=== PATIENT | female | born 1960 | race African-American/Black ===

== ENCOUNTER 2017-09-01 13:54 | Emergency (ER) | payer MEDICARE, MEDICAID ==
[~2017-09-01] VITALS: Ht 170.2 cm; Wt 84.0 kg
[~2017-09-01 13:54] MED LIST: AMI2 PO; ANUHCC PR; ASPI-1159 PO; CLAR10 PO; COMBIVENT RESPIMAT INH; EZET1TAB6 PO; FURO-151 PO; Fluticasone Propionate BOTHNSTRLS; IBUP-779 PO; LATA2.5D6 OP; LEVVL SQ; LINA5TAB PO; LORA10TA7 PO; LOSA50TA3 PO; METF500T4 PO; MONT10TA21 PO; OMEP20CA4 PO; POTA20TA34 PO; PROIN3 INH; THE3 PO
[2017-09-01] MEDS ORDERED: MORPHINE SULFATE 4 MG/ML CPJ (NOT FOR IM USE) IV STA (18:20)
[2017-09-01] MEDS ORDERED: ONDANSETRON HCL 4MG/2ML VIAL IV STA (18:20)
[2017-09-01] MEDS ORDERED: ALBUTEROL (0.083%) 2.5MG/3ML NEB HHN STA (19:26)
[2017-09-01 19:43] LABS: BASOPHILS % 0.3 % (0.0-2.0); EOSINOPHILS % 0.6 % (0.0-5.0); HEMATOCRIT. 41.8 % (36.0-48.0); HEMOGLOBIN. 13.8 g/dL (12.0-16.0); LYMPHOCYTES % 26.7 % (20.0-50.0); MEAN CORPUSCULAR HEMOGLOBIN 27.8 pg (28.0-32.0); MEAN PLATELET VOLUME 10.2 fl (7.4-10.4); MONOCYTES % 10.4 % (2.0-8.0); PLATELET 232 x1000/uL (130-400); RED BLOOD CELL COUNT 4.98 mill/uL (4.2-5.4); RED CELL DISTRIBUTION WIDTH 13.4 % (11.6-14.6)
[2017-09-01 19:46] LABS: PROTHROMBIN TIME 10.3 sec (9.4-11.6)
[2017-09-01 20:02] LABS: CLARITY URINE CLEAR (CLEAR); COLOR URINE YELLOW (YELLOW); KETONES URINE TRACE (NEGATIVE); LEUKOCYTE ESTERASE URINE 1+ (NEGATIVE); NITRITE URINE NEGATIVE (NEGATIVE); OCCULT BLOOD URINE NEGATIVE (NEGATIVE); PH URINE 6.5 (4.5-8.0); PROTEIN URINE NEGATIVE (NEGATIVE); SPECIFIC GRAVITY URINE 1.018 (1.005-1.030)
[2017-09-01 20:17] LABS: *AMPHETAMINES SCREEN URINE NEGATIVE (NEGATIVE); *BARBITURATES SCREEN URINE NEGATIVE (NEGATIVE); *BENZODIAZEPINES SCREEN URINE NEGATIVE (NEGATIVE); *COCAINE SCREEN URINE NEGATIVE (NEGATIVE); CANNABINOID URINE SCREEN NEGATIVE (NEGATIVE); METHADONE URINE SCREEN NEGATIVE (NEGATIVE); OPIATES URINE SCREEN NEGATIVE (NEGATIVE); PHENCYCLIDINE URINE SCREEN NEGATIVE (NEGATIVE)
[2017-09-01 20:34] LABS: CARBON DIOXIDE 31 mEq/L (21-32); CHLORIDE 107 mEq/L (98-107); ETHANOL BLOOD < 10 mg/dL
[2017-09-01 20:40] LABS: TROPONIN I < 0.02 ng/mL (0.00-0.04)
[2017-09-01 23:30] VITALS: BP 168/81
== END 2017-09-02 00:04 | disposition home or self-care (01) ==
LOC: ER 17:10
DX: R25.1 Tremor, unspecified (principal); H53.149 Visual discomfort, unspecified; R42 Dizziness and giddiness; R11.0 Nausea; I11.0 Hypertensive heart disease with heart failure; J44.9 Chronic obstructive pulmonary disease, unspecified; E78.00 Pure hypercholesterolemia, unspecified; E11.9 Type 2 diabetes mellitus without complications; Z86.73 Personal history of transient ischemic attack (TIA), and cerebral infarction without residual deficits; Z91.012 Allergy to eggs; Z91.011 Allergy to milk products; Z79.82 Long term (current) use of aspirin; Z79.4 Long term (current) use of insulin
CPT/HCPCS: 36415; 70450; 71045; 80053; 80198; 80305; 81001; 83880; 84484; 85025; 85610; 93005; 94640; 99285; G0482; J7611; J2270; J2405

== ENCOUNTER 2018-08-22 15:37 | Inpatient (IN) | payer MEDICARE, MEDICAID ==
[~2018-08-22] VITALS: Ht 171.4 cm; Wt 87.7 kg
[~2018-08-22 15:37] MED LIST changes: +LATA2.5D4 OP; -LATA2.5D6 OP; +METF-414 PO; -METF500T4 PO
[2018-08-22] MEDS ORDERED: HYDROCODONE/ACETAMINOPHEN 5/325MG TABLET PO ONE (16:30)
[2018-08-22] MEDS ORDERED: ALBUTEROL (0.083%) 2.5MG/3ML NEB HHN STA (17:35)
[2018-08-22 17:46] LABS: BASOPHILS % 0.9 % (0.0-2.0); EOSINOPHILS % 0.7 % (0.0-5.0); HEMATOCRIT. 38.1 % (36.0-48.0); HEMOGLOBIN. 12.6 g/dL (12.0-16.0); LYMPHOCYTES % 15.8 % (20.0-50.0); MEAN CORPUSCULAR HEMOGLOBIN 28.6 pg (28.0-32.0); MEAN CORPUSCULAR VOLUME 86.1 fL (81.0-99.0); MEAN PLATELET VOLUME 10.8 fl (7.4-10.4); MONOCYTES % 9.6 % (2.0-8.0); PLATELET 184 x1000/uL (130-400); RED BLOOD CELL COUNT 4.43 mill/uL (4.2-5.4); RED CELL DISTRIBUTION WIDTH 14.5 % (11.6-14.6)
[2018-08-22 17:51] LABS: CHLORIDE 106 mEq/L (98-107)
[2018-08-22 17:52] LABS: PROTHROMBIN TIME 10.2 sec (9.1-11.1)
[2018-08-22] MEDS ORDERED: ASPIRIN 325MG EC TABLET PO ONE (18:00)
[2018-08-22] MEDS ORDERED: GUAIFENESIN 200MG/10ML SUGAR FREE UDC PO PRN (18:45)
[2018-08-22] MEDS ORDERED: DEXTROSE 50% WATER 50ML SYRINGE IV PRN (18:45)
[2018-08-22] MEDS ORDERED: MORPHINE SULFATE 10MG/5ML ORAL SOLN UDC PO PRN (18:45)
[2018-08-22] MEDS ORDERED: CLONIDINE 0.1MG TABLET PO PRN (18:45)
[2018-08-22] MEDS ORDERED: LORAZEPAM 0.5MG TABLET PO PRN (18:45)
[2018-08-22] MEDS ORDERED: DOCUSATE SODIUM 100MG CAPSULE PO PRN (18:45)
[2018-08-22] MEDS ORDERED: ACETAMINOPHEN 325MG TABLET PO PRN (18:45)
[2018-08-22] MEDS ORDERED: NA PHOS,M-B/NA PHOS,DI-BA ENEMA 118ML PR PRN (18:45)
[2018-08-22] MEDS ORDERED: ONDANSETRON HCL 4MG/2ML INJ IV PRN (18:45)
[2018-08-22] MEDS ORDERED: NITROGLYCERIN 0.4MG TABLET SL SL PRN (18:45)
[2018-08-22] MEDS ORDERED: ZOLPIDEM TARTRATE 5MG TABLET PO PRN (18:45)
[2018-08-22] MEDS ORDERED: MAGNESIUM/ALUMINUM HYDROXIDE/SIMETHICONE 30ML UDC PO PRN (18:45)
[2018-08-22 19:06] LABS: *BARBITURATES SCREEN URINE NEGATIVE (NEGATIVE); *BENZODIAZEPINES SCREEN URINE NEGATIVE (NEGATIVE); *COCAINE SCREEN URINE NEGATIVE (NEGATIVE); METHADONE URINE SCREEN NEGATIVE (NEGATIVE)
[2018-08-22 19:07] LABS: *AMPHETAMINES SCREEN URINE NEGATIVE (NEGATIVE); CANNABINOID URINE SCREEN NEGATIVE (NEGATIVE); OPIATES URINE SCREEN NEGATIVE (NEGATIVE); PHENCYCLIDINE URINE SCREEN NEGATIVE (NEGATIVE)
[2018-08-22 22:00] VITALS: BP 140/65
[2018-08-22] MEDS ORDERED: INSULIN GLARGINE UD 100 UNITS/ML SYR SUBCUT SCH (22:00)
[2018-08-22] MEDS: INSULIN LISPRO 100 UNITS/ML SUBCUT SCH (22:36)
[2018-08-22] MEDS: BLOOD SUGAR DIAGNOSTIC STRIP TEST SCH (22:36)
[2018-08-22] MEDS: INSULIN GLARGINE UD 100 UNITS/ML SYR SUBCUT SCH (22:53)
[2018-08-22] MEDS: TRAMADOL 50MG TABLET PO PRN (22:54)
[2018-08-23] VITALS: BP 126/75
[2018-08-23 01:01] LABS: CREATINE KINASE MB FRACTION 1.1 ng/mL (0.5-3.6)
[2018-08-23] MEDS ORDERED: vit c PO (02:44)
[2018-08-23] MEDS ORDERED: COR25 PO (02:44)
[2018-08-23] MEDS ORDERED: SACU1TAB PO (02:44)
[2018-08-23] MEDS ORDERED: FLUT1BLS IH (02:44)
[2018-08-23] MEDS ORDERED: ATOR20TA65 PO (02:44)
[2018-08-23 04:00] VITALS: BP 135/72
[2018-08-23] MEDS: IPRATROPIUM/ALBUTEROL 0.5-3(2.5)MG/3ML NEB INH PRN ×2 (04:21→11:45)
[2018-08-23] MEDS: BLOOD SUGAR DIAGNOSTIC STRIP TEST SCH ×4 (06:47→21:00)
[2018-08-23] MEDS: INSULIN LISPRO 100 UNITS/ML SUBCUT SCH ×4 (06:47→21:00)
[2018-08-23 08:00] VITALS: BP 139/79
[2018-08-23 08:12] LABS: CREATINE KINASE MB FRACTION < 1.0 ng/mL (0.5-3.6)
[2018-08-23 08:15] LABS: CREATINE KINASE 109 IU/L (26-192)
[2018-08-23] MEDS ORDERED: ASPIRIN 325MG EC TABLET PO SCH (09:00)
[2018-08-23] MEDS: FAMOTIDINE 20MG TABLET PO SCH ×2 (09:56→21:45)
[2018-08-23] MEDS: LOSARTAN POTASSIUM 50 MG TABLET PO SCH (09:56)
[2018-08-23] MEDS: ASPIRIN 81MG EC TABLET PO SCH (09:56)
[2018-08-23] MEDS: ENOXAPARIN 40MG/0.4ML SYR SUBCUT SCH (09:57)
[2018-08-23] MEDS: TRAMADOL 50MG TABLET PO PRN ×2 (10:03→16:03)
[2018-08-23 12:00] VITALS: BP 136/76
[2018-08-23 16:00] VITALS: BP 138/69
[2018-08-23 20:00] VITALS: BP 140/67
[2018-08-23] MEDS ORDERED: ATORVASTATIN CALCIUM 40MG TABLET PO SCH (21:00)
[2018-08-23] MEDS: ATORVASTATIN CALCIUM 40MG TABLET PO SCH (21:45)
[2018-08-23] MEDS: INSULIN GLARGINE UD 100 UNITS/ML SYR SUBCUT SCH (22:00)
[2018-08-24] VITALS: BP 140/83
[2018-08-24] MEDS: IPRATROPIUM/ALBUTEROL 0.5-3(2.5)MG/3ML NEB INH PRN ×2 (00:28→16:12)
[2018-08-24 04:00] VITALS: BP 140/71
[2018-08-24] MEDS: BLOOD SUGAR DIAGNOSTIC STRIP TEST SCH ×4 (05:59→21:01)
[2018-08-24] MEDS: INSULIN LISPRO 100 UNITS/ML SUBCUT SCH ×4 (05:59→21:00)
[2018-08-24 07:08] LABS: BASOPHILS % 0.5 % (0.0-2.0); EOSINOPHILS % 0.7 % (0.0-5.0); HEMATOCRIT. 39.2 % (36.0-48.0); HEMOGLOBIN. 12.9 g/dL (12.0-16.0); LYMPHOCYTES % 22.9 % (20.0-50.0); MEAN CORPUSCULAR HEMOGLOBIN 28.5 pg (28.0-32.0); MEAN CORPUSCULAR VOLUME 86.6 fL (81.0-99.0); MEAN PLATELET VOLUME 10.8 fl (7.4-10.4); MONOCYTES % 9.3 % (2.0-8.0); NEUTROPHILS % 66.6 % (40.0-76.0); PLATELET 182 x1000/uL (130-400); RED BLOOD CELL COUNT 4.52 mill/uL (4.2-5.4); RED CELL DISTRIBUTION WIDTH 14.5 % (11.6-14.6)
[2018-08-24 07:18] LABS: CHLORIDE 103 mEq/L (98-107)
[2018-08-24 07:26] LABS: LDL CHOLESTEROL 157 mg/dL (5-100)
[2018-08-24 07:27] LABS: CREATINE KINASE 117 IU/L (26-192); CREATINE KINASE MB FRACTION < 1.0 ng/mL (0.5-3.6); HDL CHOLESTEROL 47 mg/dL (40-59)
[2018-08-24 08:29] VITALS: BP 127/67
[2018-08-24] MEDS: FAMOTIDINE 20MG TABLET PO SCH ×2 (08:32→21:00)
[2018-08-24] MEDS: TRAMADOL 50MG TABLET PO PRN (08:32)
[2018-08-24] MEDS: LOSARTAN POTASSIUM 50 MG TABLET PO SCH (08:32)
[2018-08-24] MEDS: ASPIRIN 81MG EC TABLET PO SCH (08:32)
[2018-08-24] MEDS: ENOXAPARIN 40MG/0.4ML SYR SUBCUT SCH (08:33)
[2018-08-24] MEDS ORDERED: POTASSIUM CHLORIDE 20MEQ TABLET SR PO NR (11:45)
[2018-08-24 12:00] VITALS: BP 121/67
[2018-08-24 16:00] VITALS: BP 115/64
[2018-08-24 20:00] VITALS: BP 122/71
[2018-08-24] MEDS: ATORVASTATIN CALCIUM 40MG TABLET PO SCH (21:00)
[2018-08-24] MEDS: INSULIN GLARGINE UD 100 UNITS/ML SYR SUBCUT SCH (21:04)
[2018-08-25 00:20] VITALS: BP 125/77
[2018-08-25] MEDS: IPRATROPIUM/ALBUTEROL 0.5-3(2.5)MG/3ML NEB INH PRN (01:38)
[2018-08-25 04:46] VITALS: BP 135/74
[2018-08-25] MEDS: INSULIN LISPRO 100 UNITS/ML SUBCUT SCH ×2 (06:27→12:40)
[2018-08-25] MEDS: BLOOD SUGAR DIAGNOSTIC STRIP TEST SCH ×2 (06:28→12:10)
[2018-08-25 07:34] VITALS: BP 137/78
[2018-08-25 07:38] LABS: HEMATOCRIT. 37.8 % (36.0-48.0); HEMOGLOBIN. 12.2 g/dL (12.0-16.0); LYMPHOCYTES % 28.6 % (20.0-50.0); MEAN CORPUSCULAR HEMOGLOBIN 28.2 pg (28.0-32.0); MEAN CORPUSCULAR VOLUME 87.2 fL (81.0-99.0); MEAN PLATELET VOLUME 11.1 fl (7.4-10.4); MONOCYTES % 14.3 % (2.0-8.0); NEUTROPHILS % 57.1 % (40.0-76.0); PLATELET 168 x1000/uL (130-400); RED BLOOD CELL COUNT 4.33 mill/uL (4.2-5.4); RED CELL DISTRIBUTION WIDTH 14.3 % (11.6-14.6)
[2018-08-25] MEDS: ENOXAPARIN 40MG/0.4ML SYR SUBCUT SCH (09:00)
[2018-08-25] MEDS: LOSARTAN POTASSIUM 50 MG TABLET PO SCH (09:35)
[2018-08-25] MEDS: FAMOTIDINE 20MG TABLET PO SCH (09:35)
[2018-08-25] MEDS: ASPIRIN 81MG EC TABLET PO SCH (09:35)
[2018-08-25 11:40] VITALS: BP 130/81
[2018-08-25 11:51] VITALS: BP 130/81
== END 2018-08-25 15:59 | disposition home or self-care (01) | DRG 313 ==
LOC: ER 15:37 → 8WST 17:38 → EDBEDREQ 17:41 → EDBEDREQTM 17:41 → ENRESERV 19:59
PROVIDERS: ADMIT Internal Medicine; ATTEND Internal Medicine
DX: R07.89 Other chest pain (principal); E44.1 Mild protein-calorie malnutrition; I42.0 Dilated cardiomyopathy; E11.9 Type 2 diabetes mellitus without complications; E83.51 Hypocalcemia; I11.0 Hypertensive heart disease with heart failure; J44.9 Chronic obstructive pulmonary disease, unspecified; I50.9 Heart failure, unspecified; I25.5 Ischemic cardiomyopathy; E78.00 Pure hypercholesterolemia, unspecified; I25.10 Atherosclerotic heart disease of native coronary artery without angina pectoris; Z68.29 Body mass index [BMI] 29.0-29.9, adult; Z79.4 Long term (current) use of insulin; Z86.73 Personal history of transient ischemic attack (TIA), and cerebral infarction without residual deficits; Z95.810 Presence of automatic (implantable) cardiac defibrillator; Z72.0 Tobacco use; Z88.1 Allergy status to other antibiotic agents; Z91.012 Allergy to eggs; Z91.011 Allergy to milk products; I25.2 Old myocardial infarction; Z98.51 Tubal ligation status; Z79.899 Other long term (current) drug therapy; Z79.82 Long term (current) use of aspirin
CPT/HCPCS: 36415; 71045; 80048; 80061; 80305; 82550; 82553; 82962; 83036; 83735; 83880; 84443; 84484; 85379; 93005; 93306; 93970; 93971; 94640; 97161; 97165; 99285; J1650; J1815; J7611; J7620

== ENCOUNTER 2018-09-27 15:33 | Inpatient (IN) | payer MEDICARE, MEDICAID ==
[~2018-09-27] VITALS: Ht 171.4 cm; Wt 81.2 kg
[~2018-09-27 15:33] MED LIST changes: -AMI2 PO; -ANUHCC PR; +ATOR20TA65 PO; -CLAR10 PO; +COR25 PO; -EZET1TAB6 PO; +FLUT1BLS IH; -Fluticasone Propionate BOTHNSTRLS; -IBUP-779 PO; -LEVVL SQ; -LORA10TA7 PO; -LOSA50TA3 PO; -OMEP20CA4 PO; +SACU1TAB PO; +vit c PO
[2018-09-27] MEDS ORDERED: METHYLPREDNISOLONE SOD SUCC 125 MG/2 ML VIAL IV STA (16:09)
[2018-09-27] MEDS ORDERED: ALBUTEROL (0.083%) 2.5MG/3ML NEB HHN STA (16:09)
[2018-09-27] MEDS ORDERED: IPRATROPIUM BROMIDE (0.02%) 0.5MG/2.5ML NEB HHN STA (16:09)
[2018-09-27] MEDS ORDERED: ASPIRIN 325MG EC TABLET PO ONE (16:15)
[2018-09-27 16:48] LABS: BASOPHILS % 0.5 % (0.0-2.0); EOSINOPHILS % 0.5 % (0.0-5.0); HEMATOCRIT. 39.9 % (36.0-48.0); HEMOGLOBIN. 13.1 g/dL (12.0-16.0); LYMPHOCYTES % 25.4 % (20.0-50.0); MEAN CORPUSCULAR HEMOGLOBIN 28.3 pg (28.0-32.0); MEAN PLATELET VOLUME 9.5 fl (7.4-10.4); MONOCYTES % 9.8 % (2.0-8.0); NEUTROPHILS % 63.8 % (40.0-76.0); PLATELET 243 x1000/uL (130-400); RED BLOOD CELL COUNT 4.64 mill/uL (4.2-5.4); RED CELL DISTRIBUTION WIDTH 14.9 % (11.6-14.6)
[2018-09-27 16:49] LABS: CHLORIDE 103 mEq/L (98-107)
[2018-09-27] MEDS: CETIRIZINE 10MG TABLET PO SCH (17:28)
[2018-09-27] MEDS ORDERED: DOCUSATE SODIUM 100MG CAPSULE PO PRN (22:00)
[2018-09-27] MEDS ORDERED: MAGNESIUM/ALUMINUM HYDROXIDE/SIMETHICONE 30ML UDC PO PRN (22:00)
[2018-09-27] MEDS ORDERED: GUAIFENESIN 200MG/10ML SUGAR FREE UDC PO PRN (22:00)
[2018-09-27] MEDS ORDERED: ONDANSETRON HCL 4MG/2ML INJ IV PRN (22:00)
[2018-09-27] MEDS ORDERED: CEFTRIAXONE 1 G PREMIX 50 ML IV SCH ×2 (22:00→23:00)
[2018-09-27] MEDS ORDERED: ACETAMINOPHEN 325MG TABLET PO PRN (22:00)
[2018-09-27] MEDS ORDERED: HYDROCODONE/ACETAMINOPHEN 5/325MG TABLET PO PRN (22:00)
[2018-09-27] MEDS ORDERED: LORAZEPAM 2MG/ML CPJ IV PRN (22:00)
[2018-09-27 22:30] VITALS: BP 148/78
[2018-09-28] VITALS: BP 123/81
[2018-09-28] MEDS: THEOPHYLLINE ANHYDROUS 80 MG/15 ML 120ML PO SCH ×5 (00:21→22:04)
[2018-09-28 01:25] LABS: CREATINE KINASE MB FRACTION 2.3 ng/mL (0.5-3.6)
[2018-09-28] MEDS ORDERED: CHOL100046 PO (02:16)
[2018-09-28] MEDS ORDERED: AMIO100T4 MT (02:16)
[2018-09-28] MEDS ORDERED: PROP10DR5 EACHEYE (02:20)
[2018-09-28] MEDS ORDERED: TAP5 PO (02:20)
[2018-09-28] MEDS ORDERED: PRED10DR EACHEYE (02:20)
[2018-09-28] MEDS ORDERED: DEXTROSE 50% WATER 50ML SYRINGE IV PRN (02:30)
[2018-09-28 04:00] VITALS: BP 111/60
[2018-09-28] MEDS: INSULIN LISPRO 100 UNITS/ML SUBCUT SCH ×4 (06:48→22:02)
[2018-09-28] MEDS: BLOOD SUGAR DIAGNOSTIC STRIP TEST SCH ×4 (06:48→21:00)
[2018-09-28 07:22] LABS: BASOPHILS % 0.1 % (0.0-2.0); HEMATOCRIT. 37.4 % (36.0-48.0); HEMOGLOBIN. 12.3 g/dL (12.0-16.0); LYMPHOCYTES % 14.4 % (20.0-50.0); MEAN CORPUSCULAR HEMOGLOBIN 28.4 pg (28.0-32.0); MEAN CORPUSCULAR VOLUME 86.4 fL (81.0-99.0); MEAN PLATELET VOLUME 9.6 fl (7.4-10.4); MONOCYTES % 2.1 % (2.0-8.0); NEUTROPHILS % 83.4 % (40.0-76.0); PLATELET 219 x1000/uL (130-400); RED BLOOD CELL COUNT 4.33 mill/uL (4.2-5.4); RED CELL DISTRIBUTION WIDTH 14.9 % (11.6-14.6)
[2018-09-28 07:25] LABS: CHLORIDE 108 mEq/L (98-107)
[2018-09-28 07:36] LABS: CREATINE KINASE 192 IU/L (26-192)
[2018-09-28 07:43] LABS: CREATINE KINASE MB FRACTION 1.8 ng/mL (0.5-3.6)
[2018-09-28 08:00] VITALS: BP 91/55
[2018-09-28] MEDS ORDERED: THEOPHYLLINE ANHYDROUS 80 MG/15 ML 120ML PO SCH (09:00)
[2018-09-28] MEDS: FUROSEMIDE 40MG/4ML VIAL IV SCH ×2 (09:00→17:53)
[2018-09-28] MEDS: CARVEDILOL 25MG TABLET PO SCH ×2 (09:00)
[2018-09-28] MEDS: METHIMAZOLE 5MG TABLET PO SCH (09:43)
[2018-09-28] MEDS: POTASSIUM CHLORIDE 20MEQ TABLET SR PO SCH (09:43)
[2018-09-28] MEDS ORDERED: OMEPRAZOLE 20MG CAPSULE EXTENDED RELEASE PO NR (11:15)
[2018-09-28 12:00] VITALS: BP 119/52
[2018-09-28] MEDS: PREDNISOLONE ACETATE 1% OPHTH DROPS 1ML EACHEYE SCH ×3 (13:00→17:53)
[2018-09-28] MEDS: IPRATROPIUM/ALBUTEROL 0.5-3(2.5)MG/3ML NEB INH PRN ×3 (13:34→21:16)
[2018-09-28 16:00] VITALS: BP 124/58
[2018-09-28] MEDS ORDERED: MONTELUKAST SODIUM 10MG TABLET PO SCH (17:00)
[2018-09-28] MEDS ORDERED: CARVEDILOL 25MG TABLET PO SCH (17:00)
[2018-09-28] MEDS: MONTELUKAST SODIUM 10MG TABLET PO SCH (17:53)
[2018-09-28 20:00] VITALS: BP 116/59
[2018-09-28] MEDS: CEFTRIAXONE 1 G PREMIX 50 ML IV SCH (22:00)
[2018-09-28] MEDS: GUAIFENESIN 600MG ER TABLET PO SCH (22:03)
[2018-09-28] MEDS: ENOXAPARIN 40MG/0.4ML SYR SUBCUT SCH ×2 (22:03)
[2018-09-28] MEDS: CARVEDILOL 6.25 MG TABLET PO SCH (22:03)
[2018-09-28] MEDS: ATORVASTATIN CALCIUM 20MG TABLET PO SCH (22:03)
[2018-09-28] MEDS: LATANOPROST 0.005% OPHTH DROPS 2.5ML BOTHEYE SCH (22:05)
[2018-09-28] MEDS: FLUTICASONE PROPIONATE 50MCG/SPRAY BOTTLE BOTHNSTRLS SCH (22:05)
[2018-09-29] VITALS: BP 121/54
[2018-09-29] MEDS: IPRATROPIUM/ALBUTEROL 0.5-3(2.5)MG/3ML NEB INH PRN ×5 (00:36→21:25)
[2018-09-29 04:00] VITALS: BP 130/6
[2018-09-29] MEDS: THEOPHYLLINE ANHYDROUS 80 MG/15 ML 120ML PO SCH ×4 (04:40→22:19)
[2018-09-29] MEDS: BLOOD SUGAR DIAGNOSTIC STRIP TEST SCH ×4 (05:48→21:36)
[2018-09-29] MEDS: OMEPRAZOLE 20MG CAPSULE EXTENDED RELEASE PO SCH (05:49)
[2018-09-29] MEDS: INSULIN LISPRO 100 UNITS/ML SUBCUT SCH ×4 (05:52→21:00)
[2018-09-29 08:00] VITALS: BP 113/49
[2018-09-29 09:00] LABS: BASOPHILS % 0.4 % (0.0-2.0); EOSINOPHILS % 0.1 % (0.0-5.0); HEMATOCRIT. 37.5 % (36.0-48.0); HEMOGLOBIN. 12.1 g/dL (12.0-16.0); MEAN CORPUSCULAR HEMOGLOBIN 28.1 pg (28.0-32.0); MEAN CORPUSCULAR VOLUME 87.3 fL (81.0-99.0); MEAN PLATELET VOLUME 9.7 fl (7.4-10.4); MONOCYTES % 6.9 % (2.0-8.0); NEUTROPHILS % 75.6 % (40.0-76.0); PLATELET 211 x1000/uL (130-400); RED BLOOD CELL COUNT 4.29 mill/uL (4.2-5.4)
[2018-09-29] MEDS: FUROSEMIDE 40MG/4ML VIAL IV SCH ×2 (09:38→18:44)
[2018-09-29] MEDS: CARVEDILOL 6.25 MG TABLET PO SCH ×2 (09:38→20:46)
[2018-09-29] MEDS: GUAIFENESIN 600MG ER TABLET PO SCH ×2 (09:38→20:46)
[2018-09-29] MEDS: POTASSIUM CHLORIDE 20MEQ TABLET SR PO SCH (09:38)
[2018-09-29] MEDS: METHIMAZOLE 5MG TABLET PO SCH (09:38)
[2018-09-29] MEDS: CETIRIZINE 10MG TABLET PO SCH (09:38)
[2018-09-29] MEDS: FLUTICASONE PROPIONATE 50MCG/SPRAY BOTTLE BOTHNSTRLS SCH ×2 (09:38→20:45)
[2018-09-29] MEDS: PREDNISOLONE ACETATE 1% OPHTH DROPS 1ML EACHEYE SCH ×3 (09:39→18:44)
[2018-09-29 12:00] VITALS: BP 151/76
[2018-09-29] MEDS ORDERED: METOLAZONE 2.5MG TABLET PO NR (12:30)
[2018-09-29] MEDS: LISINOPRIL 2.5MG TABLET PO SCH (14:01)
[2018-09-29 16:00] VITALS: BP 137/57
[2018-09-29] MEDS: MONTELUKAST SODIUM 10MG TABLET PO SCH (18:44)
[2018-09-29 20:00] VITALS: BP 118/78
[2018-09-29] MEDS: LATANOPROST 0.005% OPHTH DROPS 2.5ML BOTHEYE SCH (20:45)
[2018-09-29] MEDS: ATORVASTATIN CALCIUM 20MG TABLET PO SCH (20:46)
[2018-09-29] MEDS: ENOXAPARIN 40MG/0.4ML SYR SUBCUT SCH (22:18)
[2018-09-29] MEDS: CEFTRIAXONE 1 G PREMIX 50 ML IV SCH (22:19)
[2018-09-30] VITALS (7 sets, daily range): BP systolic 96–119; BP diastolic 52–78
[2018-09-30] MEDS: IPRATROPIUM/ALBUTEROL 0.5-3(2.5)MG/3ML NEB INH PRN ×5 (00:40→16:28)
[2018-09-30] MEDS: THEOPHYLLINE ANHYDROUS 80 MG/15 ML 120ML PO SCH ×3 (04:30→16:54)
[2018-09-30] MEDS: OMEPRAZOLE 20MG CAPSULE EXTENDED RELEASE PO SCH (07:10)
[2018-09-30] MEDS: BLOOD SUGAR DIAGNOSTIC STRIP TEST SCH ×3 (07:10→17:50)
[2018-09-30] MEDS: FUROSEMIDE 40MG/4ML VIAL IV SCH (07:15)
[2018-09-30] MEDS: INSULIN LISPRO 100 UNITS/ML SUBCUT SCH ×3 (07:25→17:40)
[2018-09-30 07:30] LABS: BASOPHILS % 0.6 % (0.0-2.0); EOSINOPHILS % 0.7 % (0.0-5.0); HEMATOCRIT. 41.7 % (36.0-48.0); HEMOGLOBIN. 13.6 g/dL (12.0-16.0); LYMPHOCYTES % 34.5 % (20.0-50.0); MEAN CORPUSCULAR HEMOGLOBIN 28.3 pg (28.0-32.0); MEAN CORPUSCULAR VOLUME 86.9 fL (81.0-99.0); MEAN PLATELET VOLUME 9.8 fl (7.4-10.4); MONOCYTES % 12.1 % (2.0-8.0); NEUTROPHILS % 52.1 % (40.0-76.0); PLATELET 218 x1000/uL (130-400); RED CELL DISTRIBUTION WIDTH 14.8 % (11.6-14.6)
[2018-09-30] MEDS: CETIRIZINE 10MG TABLET PO SCH (09:18)
[2018-09-30] MEDS: METHIMAZOLE 5MG TABLET PO SCH (09:18)
[2018-09-30] MEDS: POTASSIUM CHLORIDE 20MEQ TABLET SR PO SCH (09:18)
[2018-09-30] MEDS: CARVEDILOL 6.25 MG TABLET PO SCH (09:19)
[2018-09-30] MEDS: LISINOPRIL 2.5MG TABLET PO SCH (09:20)
[2018-09-30] MEDS: GUAIFENESIN 600MG ER TABLET PO SCH (09:20)
[2018-09-30] MEDS: PREDNISOLONE ACETATE 1% OPHTH DROPS 1ML EACHEYE SCH ×3 (09:21→17:54)
[2018-09-30] MEDS: FLUTICASONE PROPIONATE 50MCG/SPRAY BOTTLE BOTHNSTRLS SCH (09:21)
[2018-09-30] MEDS ORDERED: POTASSIUM CHLORIDE 20MEQ TABLET SR PO SCH (17:00)
[2018-09-30] MEDS: MONTELUKAST SODIUM 10MG TABLET PO SCH (17:54)
== END 2018-09-30 19:55 | disposition home or self-care (01) | DRG 291 ==
LOC: ER 15:33 → 8WST 17:30 → ENRESERV 20:29
PROVIDERS: ADMIT Hospitalist; ATTEND Hospitalist
DX: I13.0 Hypertensive heart and chronic kidney disease with heart failure and stage 1 through stage 4 chronic kidney disease, or unspecified chronic kidney disease (principal); I50.23 Acute on chronic systolic (congestive) heart failure; J96.00 Acute respiratory failure, unspecified whether with hypoxia or hypercapnia; N17.9 Acute kidney failure, unspecified; J44.1 Chronic obstructive pulmonary disease with (acute) exacerbation; I42.0 Dilated cardiomyopathy; I27.20 Pulmonary hypertension, unspecified; E11.9 Type 2 diabetes mellitus without complications; I50.82 Biventricular heart failure; N18.9 Chronic kidney disease, unspecified; J32.9 Chronic sinusitis, unspecified; E11.22 Type 2 diabetes mellitus with diabetic chronic kidney disease; E87.6 Hypokalemia; H40.9 Unspecified glaucoma; I25.10 Atherosclerotic heart disease of native coronary artery without angina pectoris; I25.2 Old myocardial infarction; Z79.899 Other long term (current) drug therapy; Z80.1 Family history of malignant neoplasm of trachea, bronchus and lung; Z80.3 Family history of malignant neoplasm of breast; Z86.73 Personal history of transient ischemic attack (TIA), and cerebral infarction without residual deficits; Z87.891 Personal history of nicotine dependence; Z90.710 Acquired absence of both cervix and uterus; Z95.810 Presence of automatic (implantable) cardiac defibrillator; Z99.81 Dependence on supplemental oxygen; Z91.81 History of falling; Z79.82 Long term (current) use of aspirin; Z88.8 Allergy status to other drugs, medicaments and biological substances; Z88.1 Allergy status to other antibiotic agents; Z91.012 Allergy to eggs; Z98.51 Tubal ligation status
CPT/HCPCS: 36415; 71045; 80048; 82550; 82553; 82962; 83880; 84484; 85379; 87804; 93005; 93306; 93970; 94640; 96374; 99285; C1893; J0696; J1650; J1815; J1940; J2930; J7040; J7611; J7620

== ENCOUNTER 2019-04-27 10:27 | Emergency (ER) | payer MEDICARE, MEDICAID ==
[~2019-04-27] VITALS: Ht 160 cm; Wt 78.1 kg
[~2019-04-27 10:27] MED LIST changes: +AMIO100T4 MT; -ASPI-1159 PO; +ASPI-1393 PO; +ATOR20TA MT; -ATOR20TA65 PO; +BLOO-1113 HHN; +CHOL100046 PO; -COMBIVENT RESPIMAT INH; +COR25 MT; -COR25 PO; -FLUT1BLS IH; -FURO-151 PO; +FURO40TA5 MT; -LATA2.5D4 OP; +LINA5TAB MT; +OMEP20CA5 MT; +PEG15DRO5 EACHEYE; +TAP5 PO; -vit c PO
[2019-04-27 10:54] LABS: BASOPHILS % 1.1 % (0.0-2.0); HEMATOCRIT. 42.3 % (36.0-48.0); HEMOGLOBIN. 13.9 g/dL (12.0-16.0); MEAN CORPUSCULAR VOLUME 85.4 fL (81.0-99.0); MEAN PLATELET VOLUME 9.8 fl (7.4-10.4); MONOCYTES % 9.4 % (2.0-8.0); NEUTROPHILS % 60.5 % (40.0-76.0); PLATELET 210 x1000/uL (130-400); RED BLOOD CELL COUNT 4.95 mill/uL (4.2-5.4); RED CELL DISTRIBUTION WIDTH 14.3 % (11.6-14.6)
[2019-04-27 10:58] LABS: CHLORIDE 105 mEq/L (98-107)
[2019-04-27 11:00] LABS: PROTHROMBIN TIME 10.6 sec (9.6-11.0)
[2019-04-27 11:05] LABS: ETHANOL BLOOD < 10 mg/dL
[2019-04-27 11:09] LABS: LDL CHOLESTEROL 131 mg/dL (5-100)
[2019-04-27 11:13] LABS: CREATINE KINASE 157 IU/L (26-192)
[2019-04-27 11:14] LABS: T4 FREE 0.88 ng/dL (0.76-1.46)
[2019-04-27] MEDS ORDERED: KCL 10MEQ/50ML PREMIX 50 ML IV ONE (11:45)
[2019-04-27] MEDS ORDERED: POTASSIUM CHLORIDE 20MEQ TABLET SR PO ONE (11:45)
[2019-04-27] MEDS ORDERED: MAGNESIUM/ALUMINUM HYDROXIDE/SIMETHICONE 30ML UDC PO PRN (14:45)
[2019-04-27] MEDS ORDERED: GUAIFENESIN 200MG/10ML SUGAR FREE UDC PO PRN (14:45)
[2019-04-27] MEDS ORDERED: ONDANSETRON HCL 4MG/2ML INJ IV PRN (14:45)
[2019-04-27] MEDS ORDERED: ACETAMINOPHEN 325MG TABLET PO PRN (14:45)
[2019-04-27] MEDS ORDERED: HYDROCODONE/ACETAMINOPHEN 5/325MG TABLET PO PRN (14:45)
[2019-04-27] MEDS ORDERED: DOCUSATE SODIUM 100MG CAPSULE PO PRN (14:45)
[2019-04-27] MEDS ORDERED: CLONIDINE 0.1MG TABLET PO PRN (14:45)
[2019-04-27] MEDS ORDERED: IPRATROPIUM/ALBUTEROL 0.5-3(2.5)MG/3ML NEB NEB PRN (14:45)
[2019-04-27 15:22] VITALS: BP 115/79
== END 2019-04-27 15:25 | disposition home or self-care (01) ==
LOC: ER 10:47 → EDBEDREQ 12:22 → EDBEDREQTM 12:22 → ENRESERV 14:24 → EDRESERV 14:24 → CANRESERV 14:24 → SUPCPDRO 14:37 → CANBEDREQ 15:06 → ER 15:25
DX: R55 Syncope and collapse (principal); I27.20 Pulmonary hypertension, unspecified; E11.9 Type 2 diabetes mellitus without complications; E87.6 Hypokalemia; E03.9 Hypothyroidism, unspecified; I10 Essential (primary) hypertension; I42.9 Cardiomyopathy, unspecified; E78.00 Pure hypercholesterolemia, unspecified; J45.990 Exercise induced bronchospasm; Z95.810 Presence of automatic (implantable) cardiac defibrillator; Z86.73 Personal history of transient ischemic attack (TIA), and cerebral infarction without residual deficits; Z79.84 Long term (current) use of oral hypoglycemic drugs; Z88.3 Allergy status to other anti-infective agents; Z91.012 Allergy to eggs; Z91.018 Allergy to other foods; Z91.011 Allergy to milk products; Z79.82 Long term (current) use of aspirin
CPT/HCPCS: 36415; 70450; 71045; 80053; 80198; 80320; 82550; 82962; 83690; 83721; 83735; 83880; 84439; 84443; 84481; 84484; 85025; 85610; 93005; 96365; 99291; J3480; G0480

== ENCOUNTER 2019-11-22 11:16 | Inpatient (IN) | payer MEDICARE, MEDICAID ==
[~2019-11-22] VITALS: Ht 170.2 cm; Wt 81.2 kg
[~2019-11-22 11:16] MED LIST changes: -ASPI-1393 PO; +ASPI-1497 PO; +FLUT1BLS INH; +IPRA4AER INH; +LATANOPROST EACHEYE; -LINA5TAB MT; +OMEP20CA14 MT; -OMEP20CA5 MT
[2019-11-22] MEDS ORDERED: ONDANSETRON HCL 4MG/2ML INJ IV STA (12:17)
[2019-11-22] MEDS ORDERED: MORPHINE SULFATE 4 MG/ML CPJ (NOT FOR IM USE) IV STA (12:17)
[2019-11-22] MEDS ORDERED: SODIUM CHLORIDE 0.9% 1,000 ML IV ONE (12:17)
[2019-11-22 12:58] LABS: BASOPHILS % 1.4 % (0.0-2.0); EOSINOPHILS % 0.8 % (0.0-5.0); HEMATOCRIT. 36.8 % (36.0-48.0); HEMOGLOBIN. 12.1 g/dL (12.0-16.0); LYMPHOCYTES % 21.1 % (20.0-50.0); MEAN CORPUSCULAR HEMOGLOBIN 26.8 pg (28.0-32.0); MEAN CORPUSCULAR VOLUME 81.7 fL (81.0-99.0); MEAN PLATELET VOLUME 8.9 fl (7.4-10.4); MONOCYTES % 13.2 % (2.0-8.0); NEUTROPHILS % 63.5 % (40.0-76.0); PLATELET 277 x1000/uL (130-400); RED CELL DISTRIBUTION WIDTH 16.9 % (11.6-14.6)
[2019-11-22 13:01] LABS: CHLORIDE 105 mEq/L (98-107)
[2019-11-22 13:15] LABS: INR 1.1; PARTIAL THROMBOPLASTIN TIME 30.5 sec (23.4-31.0); PROTHROMBIN TIME 12.1 sec (9.6-11.0)
[2019-11-22] MEDS ORDERED: POTASSIUM CHLORIDE 20MEQ TABLET SR PO ONE (15:45)
[2019-11-22] MEDS ORDERED: ASPIRIN 81MG TABLET PO ONE (15:45)
[2019-11-22] MEDS ORDERED: FUROSEMIDE 40MG/4ML VIAL IV ONE (15:45)
[2019-11-22] MEDS ORDERED: NITROGLYCERIN 0.4MG TABLET SL SL PRN (15:45)
[2019-11-22] MEDS ORDERED: ACETAMINOPHEN 325MG TABLET PO PRN (17:30)
[2019-11-22] MEDS ORDERED: DIPHENHYDRAMINE 50MG/ML VIAL IV PRN (17:30)
[2019-11-22] MEDS ORDERED: MAGNESIUM/ALUMINUM HYDROXIDE/SIMETHICONE 30ML UDC PO PRN (17:30)
[2019-11-22] MEDS ORDERED: GUAIFENESIN 200MG/10ML SUGAR FREE UDC PO PRN (17:30)
[2019-11-22] MEDS ORDERED: DOCUSATE SODIUM 100MG CAPSULE PO PRN (17:30)
[2019-11-22] MEDS ORDERED: HYDRALAZINE 20MG/ML VIAL IV PRN (17:30)
[2019-11-22] MEDS ORDERED: MORPHINE SULFATE 2 MG/ML CPJ (NOT FOR IM USE) IV PRN (17:30)
[2019-11-22] MEDS ORDERED: CLONIDINE 0.1MG TABLET PO PRN (17:30)
[2019-11-22] MEDS ORDERED: HYDROCODONE/ACETAMINOPHEN 10/325MG TABLET PO PRN (17:30)
[2019-11-22] MEDS ORDERED: LORAZEPAM 2MG/ML CPJ IV PRN (17:30)
[2019-11-22 18:34] VITALS: BP 133/82
[2019-11-22 20:20] VITALS: BP 142/79
[2019-11-22] MEDS: ENOXAPARIN 40MG/0.4ML SYR SUBCUT SCH (21:50)
[2019-11-22] MEDS: IPRATROPIUM/ALBUTEROL 0.5-3(2.5)MG/3ML NEB HHN PRN (22:17)
[2019-11-22] MEDS: SODIUM CHLORIDE 0.9% INJ 3ML FLUSH IVF SCH (22:47)
[2019-11-22 23:13] LABS: CREATINE KINASE MB FRACTION 2.7 ng/mL (0.5-3.6)
[2019-11-22 23:51] VITALS: BP 132/88
[2019-11-23] MEDS: IPRATROPIUM/ALBUTEROL 0.5-3(2.5)MG/3ML NEB HHN PRN (02:20)
[2019-11-23 04:00] VITALS: BP 141/82
[2019-11-23 05:51] LABS: BASOPHILS % 1.2 % (0.0-2.0); EOSINOPHILS % 0.8 % (0.0-5.0); HEMATOCRIT. 33.2 % (36.0-48.0); HEMOGLOBIN. 11.1 g/dL (12.0-16.0); LYMPHOCYTES % 31.7 % (20.0-50.0); MEAN CORPUSCULAR HEMOGLOBIN 27.5 pg (28.0-32.0); MEAN PLATELET VOLUME 8.9 fl (7.4-10.4); MONOCYTES % 12.1 % (2.0-8.0); NEUTROPHILS % 54.2 % (40.0-76.0); PLATELET 240 x1000/uL (130-400); RED BLOOD CELL COUNT 4.05 mill/uL (4.2-5.4); RED CELL DISTRIBUTION WIDTH 16.8 % (11.6-14.6)
[2019-11-23 06:03] LABS: CHLORIDE 107 mEq/L (98-107)
[2019-11-23] MEDS: SODIUM CHLORIDE 0.9% INJ 3ML FLUSH IVF SCH ×3 (06:11→21:41)
[2019-11-23 06:14] LABS: CREATINE KINASE 116 IU/L (26-192)
[2019-11-23 06:19] LABS: CREATINE KINASE MB FRACTION 2.2 ng/mL (0.5-3.6)
[2019-11-23 08:00] VITALS: BP 115/72
[2019-11-23] MEDS: ONDANSETRON HCL 4MG/2ML INJ IV PRN (09:43)
[2019-11-23] MEDS: FUROSEMIDE 40MG/4ML VIAL IVP SCH (09:43)
[2019-11-23 12:00] VITALS: BP 132/90
[2019-11-23] MEDS ORDERED: SORBITOL 70% SOLN 30ML PO ONE (13:45)
[2019-11-23 16:00] VITALS: BP 121/79
[2019-11-23 20:00] VITALS: BP 120/82
[2019-11-23] MEDS: ENOXAPARIN 40MG/0.4ML SYR SUBCUT SCH (21:41)
[2019-11-24] VITALS: BP 113/92
[2019-11-24 03:58] LABS: CLARITY URINE TURBID (CLEAR); COLOR URINE DARK YELLOW (YELLOW); KETONES URINE NEGATIVE (NEGATIVE); LEUKOCYTE ESTERASE URINE 2+ (NEGATIVE); NITRITE URINE NEGATIVE (NEGATIVE); OCCULT BLOOD URINE 3+ (NEGATIVE); PH URINE 6.5 (4.5-8.0); PROTEIN URINE 1+ (NEGATIVE)
[2019-11-24 04:00] VITALS: BP 135/67
[2019-11-24] MEDS: IPRATROPIUM/ALBUTEROL 0.5-3(2.5)MG/3ML NEB HHN PRN (05:32)
[2019-11-24] MEDS: SODIUM CHLORIDE 0.9% INJ 3ML FLUSH IVF SCH ×3 (06:56→21:32)
[2019-11-24 06:58] LABS: BASOPHILS % 1.6 % (0.0-2.0); EOSINOPHILS % 0.7 % (0.0-5.0); HEMATOCRIT. 35.5 % (36.0-48.0); HEMOGLOBIN. 11.7 g/dL (12.0-16.0); LYMPHOCYTES % 35.4 % (20.0-50.0); MEAN CORPUSCULAR HEMOGLOBIN 27.1 pg (28.0-32.0); MEAN CORPUSCULAR VOLUME 82.2 fL (81.0-99.0); MONOCYTES % 13.9 % (2.0-8.0); NEUTROPHILS % 48.4 % (40.0-76.0); PLATELET 253 x1000/uL (130-400); RED BLOOD CELL COUNT 4.32 mill/uL (4.2-5.4); RED CELL DISTRIBUTION WIDTH 16.9 % (11.6-14.6)
[2019-11-24] MEDS ORDERED: SORBITOL 70% SOLN 30ML PO ONE (07:00)
[2019-11-24 08:00] VITALS: BP 135/67
[2019-11-24] MEDS: FUROSEMIDE 40MG/4ML VIAL IVP SCH (08:36)
[2019-11-24 12:00] VITALS: BP 120/90
[2019-11-24] MEDS ORDERED: KCL 20MEQ/100ML PREMIX 100 ML IV NR (12:00)
[2019-11-24] MEDS ORDERED: MIDAZOLAM HCL 5 MG/5 ML VIAL ONE (14:39)
[2019-11-24] MEDS ORDERED: FENTANYL CITRATE/PF 50MCG/ML 2ML VIAL ONE (14:39)
[2019-11-24] MEDS ORDERED: FENTANYL CITRATE/PF 50MCG/ML 2ML VIAL IV PRN (14:44)
[2019-11-24] MEDS ORDERED: MIDAZOLAM HCL 5 MG/5 ML VIAL IV PRN (14:45)
[2019-11-24 16:20] VITALS: BP 110/81
[2019-11-24 20:00] VITALS: BP 124/82
[2019-11-24] MEDS: ENOXAPARIN 40MG/0.4ML SYR SUBCUT SCH (20:31)
[2019-11-25] VITALS: BP 115/72
[2019-11-25] MEDS: IPRATROPIUM/ALBUTEROL 0.5-3(2.5)MG/3ML NEB HHN PRN ×2 (03:23→23:39)
[2019-11-25 04:00] VITALS: BP 118/83
[2019-11-25 07:00] LABS: BASOPHILS % 1.1 % (0.0-2.0); EOSINOPHILS % 0.6 % (0.0-5.0); HEMATOCRIT. 34.8 % (36.0-48.0); HEMOGLOBIN. 11.6 g/dL (12.0-16.0); LYMPHOCYTES % 30.5 % (20.0-50.0); MEAN CORPUSCULAR HEMOGLOBIN 27.1 pg (28.0-32.0); MEAN CORPUSCULAR VOLUME 81.4 fL (81.0-99.0); MONOCYTES % 14.7 % (2.0-8.0); NEUTROPHILS % 53.1 % (40.0-76.0); PLATELET 251 x1000/uL (130-400); RED BLOOD CELL COUNT 4.27 mill/uL (4.2-5.4); RED CELL DISTRIBUTION WIDTH 16.9 % (11.6-14.6)
[2019-11-25] MEDS: SODIUM CHLORIDE 0.9% INJ 3ML FLUSH IVF SCH ×3 (07:03→23:05)
[2019-11-25 08:00] VITALS: BP 128/106
[2019-11-25] MEDS: DEXT 5%/0.45% NACL KCL 10MEQ/L 1,000 ML IV SCH (11:43)
[2019-11-25 12:00] VITALS: BP 100/70
[2019-11-25 16:00] VITALS: BP 119/80
[2019-11-25] MEDS: OMEPRAZOLE 20MG CAPSULE EXTENDED RELEASE PO SCH (17:59)
[2019-11-25 20:00] VITALS: BP 91/69
[2019-11-25] MEDS: ENOXAPARIN 40MG/0.4ML SYR SUBCUT SCH (23:04)
[2019-11-26] VITALS: BP 114/84
[2019-11-26 04:00] VITALS: BP 92/61
[2019-11-26] MEDS: OMEPRAZOLE 20MG CAPSULE EXTENDED RELEASE PO SCH (06:12)
[2019-11-26] MEDS: SODIUM CHLORIDE 0.9% INJ 3ML FLUSH IVF SCH ×3 (06:18→20:25)
[2019-11-26 07:36] LABS: BASOPHILS % 0.9 % (0.0-2.0); EOSINOPHILS % 0.4 % (0.0-5.0); HEMATOCRIT. 34.2 % (36.0-48.0); HEMOGLOBIN. 11.4 g/dL (12.0-16.0); LYMPHOCYTES % 30.7 % (20.0-50.0); MEAN CORPUSCULAR HEMOGLOBIN 26.9 pg (28.0-32.0); MEAN PLATELET VOLUME 9.1 fl (7.4-10.4); MONOCYTES % 12.5 % (2.0-8.0); NEUTROPHILS % 55.5 % (40.0-76.0); PLATELET 242 x1000/uL (130-400); RED BLOOD CELL COUNT 4.23 mill/uL (4.2-5.4); RED CELL DISTRIBUTION WIDTH 16.7 % (11.6-14.6)
[2019-11-26 08:00] VITALS: BP 126/89
[2019-11-26] MEDS: DEXT 5%/0.45% NACL KCL 10MEQ/L 1,000 ML IV SCH (10:30)
[2019-11-26 12:00] VITALS: BP 95/68
[2019-11-26 16:00] VITALS: BP 108/71
[2019-11-26] MEDS: IPRATROPIUM/ALBUTEROL 0.5-3(2.5)MG/3ML NEB HHN PRN (17:26)
[2019-11-26 20:00] VITALS: BP 107/86
[2019-11-26] MEDS: ONDANSETRON HCL 4MG/2ML INJ IV PRN (20:20)
[2019-11-26] MEDS: ENOXAPARIN 30MG/0.3ML SYR SUBCUT SCH (20:25)
[2019-11-27] VITALS (7 sets, daily range): BP systolic 113–138; BP diastolic 67–88
[2019-11-27] MEDS: SODIUM CHLORIDE 0.9% INJ 3ML FLUSH IVF SCH ×3 (04:59→22:26)
[2019-11-27] MEDS: FAMOTIDINE 20MG TABLET PO SCH (07:58)
[2019-11-27] MEDS: IPRATROPIUM/ALBUTEROL 0.5-3(2.5)MG/3ML NEB HHN PRN ×2 (09:08→12:33)
[2019-11-27] MEDS: ONDANSETRON HCL 4MG/2ML INJ IV PRN (20:09)
[2019-11-27] MEDS: ENOXAPARIN 30MG/0.3ML SYR SUBCUT SCH (20:09)
[2019-11-27] MEDS: SODIUM CHLORIDE 0.9% 1,000 ML IV SCH (20:10)
[2019-11-28] VITALS: BP 120/80
[2019-11-28 04:00] VITALS: BP 136/78
[2019-11-28] MEDS: SODIUM CHLORIDE 0.9% 1,000 ML IV SCH ×3 (04:45→17:14)
[2019-11-28] MEDS: SODIUM CHLORIDE 0.9% INJ 3ML FLUSH IVF SCH ×3 (05:07→21:36)
[2019-11-28 07:19] LABS: VITAMIN B12 SERUM >2000 pg/mL pg/mL (211-911)
[2019-11-28 07:52] LABS: TOTAL IRON BINDING CAPACITY 444 ug/dL (250-450)
[2019-11-28 08:00] VITALS: BP 125/83
[2019-11-28] MEDS: FAMOTIDINE 20MG TABLET PO SCH (08:08)
[2019-11-28 10:53] LABS: FERRITIN 104 ng/mL (10-291)
[2019-11-28 12:00] VITALS: BP 130/89
[2019-11-28] MEDS ORDERED: SODIUM POLYSTYRENE SULFONATE 15 G/60 ML BOT PO SCH (12:30)
[2019-11-28 16:00] VITALS: BP 127/77
[2019-11-28] MEDS: DRONABINOL 2.5MG CAPSULE PO SCH (17:12)
[2019-11-28 20:00] VITALS: BP 107/78
[2019-11-28] MEDS: ENOXAPARIN 30MG/0.3ML SYR SUBCUT SCH (21:32)
[2019-11-29] VITALS: BP 132/75
[2019-11-29 04:00] VITALS: BP 110/66
[2019-11-29] MEDS: SODIUM CHLORIDE 0.9% INJ 3ML FLUSH IVF SCH ×3 (05:56→22:00)
[2019-11-29] MEDS: IPRATROPIUM/ALBUTEROL 0.5-3(2.5)MG/3ML NEB HHN PRN (06:52)
[2019-11-29 08:00] VITALS: BP 109/60
[2019-11-29] MEDS: FAMOTIDINE 20MG TABLET PO SCH (09:14)
[2019-11-29] MEDS: SODIUM CHLORIDE 0.9% 1,000 ML IV SCH ×2 (09:15→18:02)
[2019-11-29 11:16] LABS: BASOPHILS % 1.1 % (0.0-2.0); EOSINOPHILS % 0.3 % (0.0-5.0); HEMATOCRIT. 37.7 % (36.0-48.0); HEMOGLOBIN. 12.2 g/dL (12.0-16.0); LYMPHOCYTES % 18.6 % (20.0-50.0); MEAN CORPUSCULAR HEMOGLOBIN 26.7 pg (28.0-32.0); MEAN CORPUSCULAR VOLUME 82.1 fL (81.0-99.0); MEAN PLATELET VOLUME 8.9 fl (7.4-10.4); MONOCYTES % 13.3 % (2.0-8.0); NEUTROPHILS % 66.7 % (40.0-76.0); PLATELET 194 x1000/uL (130-400); RED BLOOD CELL COUNT 4.58 mill/uL (4.2-5.4); RED CELL DISTRIBUTION WIDTH 17.1 % (11.6-14.6)
[2019-11-29 12:00] VITALS: BP 110/64
[2019-11-29] MEDS: THEOPHYLLINE ANHYDROUS 80 MG/15 ML 120ML PO SCH ×2 (15:04→20:36)
[2019-11-29 16:00] VITALS: BP 99/59
[2019-11-29] MEDS: DRONABINOL 2.5MG CAPSULE PO SCH ×2 (16:27→16:31)
[2019-11-29 20:00] VITALS: BP 115/70
[2019-11-29] MEDS: ENOXAPARIN 30MG/0.3ML SYR SUBCUT SCH (20:39)
[2019-11-30] VITALS: BP 119/87
[2019-11-30] MEDS: IPRATROPIUM/ALBUTEROL 0.5-3(2.5)MG/3ML NEB HHN PRN ×3 (00:54→18:21)
[2019-11-30] MEDS: THEOPHYLLINE ANHYDROUS 80 MG/15 ML 120ML PO SCH ×4 (02:55→20:14)
[2019-11-30 04:00] VITALS: BP 102/65
[2019-11-30] MEDS: SODIUM CHLORIDE 0.9% 1,000 ML IV SCH ×2 (05:59→17:28)
[2019-11-30] MEDS: SODIUM CHLORIDE 0.9% INJ 3ML FLUSH IVF SCH ×3 (06:00→20:30)
[2019-11-30 06:30] LABS: HEMATOCRIT. 34.8 % (36.0-48.0); HEMOGLOBIN. 11.6 g/dL (12.0-16.0); MEAN CORPUSCULAR VOLUME 81.4 fL (81.0-99.0); MEAN PLATELET VOLUME 8.9 fl (7.4-10.4); PLATELET 198 x1000/uL (130-400); RED BLOOD CELL COUNT 4.27 mill/uL (4.2-5.4); RED CELL DISTRIBUTION WIDTH 17.2 % (11.6-14.6)
[2019-11-30 06:31] LABS: CHLORIDE 110 mEq/L (98-107)
[2019-11-30] MEDS: DRONABINOL 2.5MG CAPSULE PO SCH ×2 (06:45→17:28)
[2019-11-30 08:00] VITALS: BP 110/80
[2019-11-30] MEDS: FAMOTIDINE 20MG TABLET PO SCH (09:00)
[2019-11-30 11:05] LABS: NUCLEATED RED BLOOD CELLS 2 /100 WBC
[2019-11-30 11:06] LABS: PLATELET ESTIMATE NORMAL
[2019-11-30] MEDS ORDERED: DIATR MEGLU/DIATRIZOATE SOLN 30ML PO NR (11:43)
[2019-11-30 12:00] VITALS: BP 123/87
[2019-11-30 16:00] VITALS: BP 120/85
[2019-11-30 20:00] VITALS: BP 123/86
[2019-11-30] MEDS ORDERED: ENOXAPARIN 40MG/0.4ML SYR SUBCUT SCH (21:00)
[2019-11-30] MEDS ORDERED: IOHEXOL-300 100 ML BOTTLE ONE (23:03)
[2019-12-01] VITALS: BP 111/76
[2019-12-01] MEDS: SODIUM CHLORIDE 0.9% 1,000 ML IV SCH (02:19)
[2019-12-01] MEDS: THEOPHYLLINE ANHYDROUS 80 MG/15 ML 120ML PO SCH ×3 (03:34→14:11)
[2019-12-01 04:00] VITALS: BP 111/79
[2019-12-01 06:06] LABS: HEMATOCRIT. 36.7 % (36.0-48.0); HEMOGLOBIN. 11.8 g/dL (12.0-16.0); MEAN CORPUSCULAR HEMOGLOBIN 26.5 pg (28.0-32.0); MEAN CORPUSCULAR VOLUME 82.8 fL (81.0-99.0); MEAN PLATELET VOLUME 8.8 fl (7.4-10.4); PLATELET 214 x1000/uL (130-400); RED BLOOD CELL COUNT 4.43 mill/uL (4.2-5.4); RED CELL DISTRIBUTION WIDTH 17.5 % (11.6-14.6)
[2019-12-01] MEDS: DRONABINOL 2.5MG CAPSULE PO SCH ×2 (06:52→16:45)
[2019-12-01] MEDS: SODIUM CHLORIDE 0.9% INJ 3ML FLUSH IVF SCH ×2 (06:52→14:11)
[2019-12-01 08:00] VITALS: BP 111/62
[2019-12-01] MEDS: FAMOTIDINE 20MG TABLET PO SCH (09:24)
[2019-12-01 09:40] LABS: NUCLEATED RED BLOOD CELLS 2 /100 WBC; PLATELET ESTIMATE NORMAL
[2019-12-01 12:00] VITALS: BP 106/70
[2019-12-01 12:20] LABS: HEPATITIS B SURFACE ANTIGEN NEGATIVE
[2019-12-01 12:49] LABS: HEPATITIS A AB IGM NEGATIVE (NEGATIVE)
[2019-12-01 14:55] VITALS: BP 106/70
[2019-12-01 16:00] VITALS: BP 114/71
== END 2019-12-01 17:45 | disposition home or self-care (01) | DRG 444 ==
LOC: ER 11:16 → 6WST 16:00 → ENRESERV 16:29 → 5WST 11-24 11:08
PROVIDERS: ADMIT Internal Medicine; ATTEND Internal Medicine
PROC: 0DB68ZX Excision of Stomach, Via Natural or Artificial Opening Endoscopic, Diagnostic (ICD-10-PCS; principal; 2019-11-24)
PROC: 0DBL8ZZ Excision of Transverse Colon, Via Natural or Artificial Opening Endoscopic (ICD-10-PCS; 2019-11-24)
PROC: 0DBN8ZX Excision of Sigmoid Colon, Via Natural or Artificial Opening Endoscopic, Diagnostic (ICD-10-PCS; 2019-11-24)
DX: K80.20 Calculus of gallbladder without cholecystitis without obstruction (principal); N17.0 Acute kidney failure with tubular necrosis; I50.23 Acute on chronic systolic (congestive) heart failure; I13.0 Hypertensive heart and chronic kidney disease with heart failure and stage 1 through stage 4 chronic kidney disease, or unspecified chronic kidney disease; E46 Unspecified protein-calorie malnutrition; I47.2 Ventricular tachycardia; R18.8 Other ascites; I42.0 Dilated cardiomyopathy; K29.70 Gastritis, unspecified, without bleeding; I25.10 Atherosclerotic heart disease of native coronary artery without angina pectoris; E87.6 Hypokalemia; E78.5 Hyperlipidemia, unspecified; N18.9 Chronic kidney disease, unspecified; I08.1 Rheumatic disorders of both mitral and tricuspid valves; E11.22 Type 2 diabetes mellitus with diabetic chronic kidney disease; K76.89 Other specified diseases of liver; E66.9 Obesity, unspecified; D72.819 Decreased white blood cell count, unspecified; E86.0 Dehydration; E05.90 Thyrotoxicosis, unspecified without thyrotoxic crisis or storm; E87.5 Hyperkalemia; I27.20 Pulmonary hypertension, unspecified; K76.1 Chronic passive congestion of liver; M19.90 Unspecified osteoarthritis, unspecified site; Z79.51 Long term (current) use of inhaled steroids; Z95.810 Presence of automatic (implantable) cardiac defibrillator; Z86.73 Personal history of transient ischemic attack (TIA), and cerebral infarction without residual deficits; Z68.33 Body mass index [BMI] 33.0-33.9, adult; Z79.899 Other long term (current) drug therapy; Z87.19 Personal history of other diseases of the digestive system; Z68.28 Body mass index [BMI] 28.0-28.9, adult; Z88.1 Allergy status to other antibiotic agents; Z91.012 Allergy to eggs; Z91.011 Allergy to milk products; Z91.018 Allergy to other foods; Z79.82 Long term (current) use of aspirin; Z79.84 Long term (current) use of oral hypoglycemic drugs
CPT/HCPCS: 36415; 71045; 74176; 74177; 76700; 76856; 78227; 80048; 80053; 80076; 81003; 82105; 82378; 82550; 82553; 82607; 82728; 82746; 82962; 83540; 83550; 83880; 84484; 85025; 86301; 86304; 86677; 86705; 86709; 86803; 87015; 87045; 87340; 87427; 87449; 87493; 88305; 93005; 93306; 93970; 94640; 96374; 99152; 99285; A9537; J1200; J1650; J1940; J2250; J2270; J2405; J3010; J3480; J7030; Q0167; Q9963; Q9967; G0500